=== PATIENT | male | born 1985 | race Caucasian/White ===

== ENCOUNTER 2017-10-12 23:49 | Emergency (ER) | payer BC ==
[~2017-10-12] VITALS: Ht 170.1 cm; Wt 90.7 kg
--- NOTE | ~2017-10-12 | EKG ---
[place], [place] ELECTROCARDIOGRAM REPORT NAME: DUSTY HARDING UNIT #: [id number] ROOM: DOCTOR: ALEAH MARIN MD BIRTHDATE: [birth year] DOS: 10/13/2017 TIME: 0050 hours. FINDINGS: 1. Sinus tachycardia at 110 beats per minute. 2. The tracing is otherwise normal. 3. No previous tracing is available for comparison. ALEAH MARIN MD CM:EKGRPT:ELECTROCARDIOGRAM REPORT [id number] ALEAH MARIN MD
[2017-10-13 01:22] LABS: ALBUMIN 3.2 gm/dl (3.1-4.5); ALKALINE PHOSPHATASE 97 U/L (45-117); BUN 11 mg/dl (7-24); CHLORIDE 110 mmol/L (98-107); CREATININE 1.36 mg/dL (0.70-1.30); POTASSIUM 3.5 mmol/L (3.5-5.1); SGOT/AST 109 IU/L (3-35); SGPT/ALT 109 U/L (12-78); SODIUM 142 mmol/L (136-145)
[2017-10-13 01:33] LABS: TROPONIN I 0.156 ng/ml (<0.045)
[2017-10-13 01:37] LABS: BASO # 0.1 10*3/uL (0.0-0.1); BASO % 0.7 % (0.0-1.0); EOS # 0.3 10*3/uL (0.0-0.4); EOS % 1.5 % (1.0-4.0); HEMOGLOBIN 15.2 g/dl (14.0-18.0); LYMPH % 27.9 % (27.0-41.0); MEAN CELL VOLUME 87.2 fl (80.0-94.0); MEAN CORPUSCULAR HGB 29.5 pg (27.0-31.0); MEAN CORPUSCULAR HGB CONC 33.8 g/dl (33.0-37.0); MEAN PLATELET VOLUME 10.3 fl (9.6-12.3); MONO # 0.9 10*3/uL (0.1-1.0); MONO % 5.2 % (3.0-9.0); NEUT # 11.4 10*3/uL (2.3-7.9); NEUT % 63.7 % (47.0-73.0); PLATELET COUNT AUTOMATED 309 10*3/uL (130-400); RED BLOOD COUNT 5.16 10*6/uL (4.50-5.90); RED CELL DISTRI WIDTH 12.5 % (0-14.5); WHITE BLOOD COUNT 17.9 10*3/uL (4.8-10.8)
== END 2017-10-13 02:22 | disposition short-term general hospital (02) ==
LOC: ED 23:49
PROVIDERS: Emergency Medicine
DX: A41.9 Sepsis, unspecified organism (principal); R65.21 Severe sepsis with septic shock; T79.7XXA Traumatic subcutaneous emphysema, initial encounter; X58.XXXA Exposure to other specified factors, initial encounter

== ENCOUNTER 2017-10-29 11:17 | Inpatient (IN) | payer BC ==
[~2017-10-29] VITALS: Ht 170.1 cm; Wt 82.4 kg
[2017-10-29] VITALS (13 sets, daily range): BP systolic 74–126; BP diastolic 48–63
--- NOTE | ~2017-10-29 | CON ---
[place], [place] REPORT OF CONSULTATION NAME: DUSTY HARDING UNIT #: [id number] ROOM: 411 DOCTOR: CASTILLO CARUSO MD BIRTHDATE: [birth year] DOS: 10/30/2017 REASON FOR CONSULTATION: Syncope. HISTORY OF PRESENT ILLNESS: The patient, a 32-year-old gentleman came to the Emergency Room after near syncope. He had a history of "aortic aneurysm," which was repaired on 10/14/2017 at [facility] in [place] and details are unknown. He was discharged on 10/20/2017. He is complaining of some "near syncopal attack at home," but no shortness of breath, chest pain, or heart palpitation prior to this episode, so he woke up in the morning and when he was about to go to the bathroom, he felt dizzy and then fell on his butt, but no loss of consciousness. He was brought to the Emergency Room, admitted to the hospital. He was found to have a low blood pressure and he was treated with IV fluids and Cardiology consulted for further recommendations. He was on hydrochlorothiazide, Coreg and losartan at home. At the time of my examination, the patient is alert, oriented. Denies any chest pain, shortness of breath. No palpitation or dizziness. No nausea, vomiting, no diarrhea. No bladder or bowel symptoms. REVIEW OF SYSTEMS: Review of the 10 system negative except as mentioned above. He denies any chest pain, shortness of breath, no palpitations, no PND, orthopnea. No nausea, vomiting, diarrhea. No bladder or bowel symptoms. No pulmonary symptoms, no neurologic symptoms. No musculoskeletal symptoms. No genitourinary symptoms. PAST MEDICAL HISTORY: 1. History of aortic aneurysm versus aortic dissection, details unknown. Status post aortic repair on 10/14/2017 in [place]. 2. Overweight. 3. Possible labile hypertension based on his home medications. 4. Acid reflux. 5. Prediabetes. PAST SURGICAL HISTORY: Aortic repair September 2017, details unknown. SOCIAL HISTORY: The patient does not smoke or drink, does not use illicit drugs. FAMILY HISTORY: Father in his 30s, cause unknown. Mother has a high cholesterol. HOME MEDICATIONS: Reviewed. ALLERGIES: Reviewed. PHYSICAL EXAMINATION: VITAL SIGNS: Blood pressure 129/82, pulse 82, respiratory rate is 18, weight 88.2 kilos, BMI 28.5. GENERAL: Alert, comfortable, in no acute distress. HEAD AND NECK: Pupils are round, equal. No jaundice. Tongue was moist and [place], [place] REPORT OF CONSULTATION NAME: DUSTY HARDING UNIT #: [id number] ROOM: 411 DOCTOR: CASTILLO CARUSO MD BIRTHDATE: [birth year] pharynx clear. NECK: Supple, no distended neck veins, no carotid bruit. CHEST: Symmetrical, nontender, well-healed midline scar. LUNGS: Clear to auscultation bilaterally. HEART: Regular rhythm, no S3, no palpable thrills. ABDOMEN: Benign, nontender. Bowel sounds normal. EXTREMITIES: Showed no edema. Distal pulses palpable. SKIN: Warm and dry. No cyanosis, no clubbing. RECTAL: Deferred. GENITOURINARY: Deferred. MUSCULOSKELETAL: No joint tenderness or swelling. NEUROLOGIC: The patient is alert, oriented. No focal neurologic deficit. PSYCHIATRIC: The patient is alert with good mood and affect. REVIEW OF THE DIAGNOSTIC TESTS: EKG shows sinus rhythm with inferior Q-waves. His labs and imaging studies reviewed. A CT chest showed a small pericardial effusion with ascending aortic repair. IMPRESSION: 1. Near syncope. Positive due to hypotension and orthostasis, resolved. No recurrence. 2. Recent aortic aneurysm surgery, details unknown. 3. Small pericardial effusion by CT chest. 4. Right upper abdominal quadrant pain. 5. Acid reflux. 6. Overweight. RECOMMENDATIONS: 1. I would recommend continuing low-dose beta blockers and to discontinue his losartan and hydrochlorothiazide. 2. Monitor blood pressures and heart rates at home. 3. No further cardiac testing from the cardiac standpoint. 4. If he had any recurrent dizzy or syncopal attacks, he will need outpatient event monitor. 5. We will follow him at our Cardiology Clinic in 2-4 weeks after discharge. 6. He can be discharged home from the cardiac standpoint. The above treatment plan discussed with the patient and his significant other who is at bedside and all questions were answered. He will follow with the cardiac surgeon in [place] as per his schedule. The patient was advised to drink plenty of fluids, avoid dehydration and also monitor his blood pressures at home. [place], [place] REPORT OF CONSULTATION NAME: DUSTY HARDING UNIT #: [id number] ROOM: 411 DOCTOR: ZULY NOLEN,CASTILLO BIRTHDATE: [birth year] CASTILLO CARUSO MD CM:CONSTR:REPORT OF CONSULTATION 1212 10/31/17 0116 interface
[2017-10-29 11:55] LABS: BASO # 0.1 10*3/uL (0.0-0.1); BASO % 0.4 % (0.0-1.0); EOS # 0.2 10*3/uL (0.0-0.4); EOS % 1.7 % (1.0-4.0); HEMOGLOBIN 12.4 g/dl (14.0-18.0); LYMPH # 1.7 10*3/uL (1.3-4.4); LYMPH % 12.9 % (27.0-41.0); MEAN CELL VOLUME 89.2 fl (80.0-94.0); MEAN CORPUSCULAR HGB 28.4 pg (27.0-31.0); MEAN CORPUSCULAR HGB CONC 31.8 g/dl (33.0-37.0); MEAN PLATELET VOLUME 8.7 fl (9.6-12.3); MONO # 1.1 10*3/uL (0.1-1.0); MONO % 8.2 % (3.0-9.0); NEUT # 10.1 10*3/uL (2.3-7.9); NEUT % 76.3 % (47.0-73.0); PLATELET COUNT AUTOMATED 811 10*3/uL (130-400); RED BLOOD COUNT 4.37 10*6/uL (4.50-5.90); WHITE BLOOD COUNT 13.2 10*3/uL (4.8-10.8)
[2017-10-29 12:04] LABS: ACT PARTIAL THROMBO TIME 21.4 SECONDS (20.8-31.5); INTERNATIONAL NORM RATIO 0.9 (2.0-3.5)
[2017-10-29 12:10] LABS: ALBUMIN 3.4 gm/dl (3.1-4.5); ALKALINE PHOSPHATASE 428 U/L (45-117); BUN 30 mg/dl (7-24); CHLORIDE 99 mmol/L (98-107); CREATININE 1.56 mg/dL (0.70-1.30); LIPASE 516 U/L (73-393); POTASSIUM 4.5 mmol/L (3.5-5.1); SGOT/AST 162 IU/L (3-35); SGPT/ALT 352 U/L (12-78); SODIUM 134 mmol/L (136-145); TOTAL PROTEIN 8.7 gm/dL (6.4-8.2)
[2017-10-29 12:13] LABS: TROPONIN I < 0.015 ng/ml (<0.045)
[2017-10-29] MEDS ORDERED: HYDR25T PO (12:18)
[2017-10-29] MEDS ORDERED: COREG12.5 M1 PO (12:18)
[2017-10-29] MEDS ORDERED: ASPIRIN81 M1 PO (12:18)
[2017-10-29] MEDS ORDERED: LOSARTAN POTAS100 M1 PO (12:18)
[2017-10-29] MEDS ORDERED: PROTONIX40 MG PO (12:19)
[2017-10-29] MEDS ORDERED: PENICILLIN-VK500 MG PO (12:19)
[2017-10-29 14:20] LABS: BILIRUBIN NEGATIVE (NEGATIVE); BLOOD NEGATIVE (NEGATIVE); CLARITY CLEAR (CLEAR); COLOR YELLOW (YELLOW); GLUCOSE NEGATIVE (NEGATIVE); KETONE NEGATIVE (NEGATIVE); LEUKO ESTERASE NEGATIVE (NEGATIVE); NITRITE NEGATIVE (NEGATIVE); PH 5.5 (5.0-9.0); SPECIFIC GRAVITY <= 1.005 (1.005-1.030); UROBILINOGEN 0.2 E.U./dl (0.2-1.0)
[2017-10-29 14:33] LABS: BACTERIA TRACE; EPITHELIAL CELLS 0-2; HYALINE CAST 0-2; RBC 0-2 rbc/hpf (0-2)
[2017-10-29] MEDS ORDERED: [UNRECOGNIZED DRUG - OTHER] PO (17:25)
[2017-10-30] VITALS: BP 132/72
[2017-10-30 05:29] VITALS: BP 129/82
[2017-10-30 07:16] LABS: BASO # 0.1 10*3/uL (0.0-0.1); BASO % 0.7 % (0.0-1.0); EOS # 0.2 10*3/uL (0.0-0.4); EOS % 2.4 % (1.0-4.0); HEMATOCRIT 34.2 % (42.0-52.0); HEMOGLOBIN 10.7 g/dl (14.0-18.0); LYMPH # 2.4 10*3/uL (1.3-4.4); MEAN CELL VOLUME 90.5 fl (80.0-94.0); MEAN CORPUSCULAR HGB 28.3 pg (27.0-31.0); MEAN CORPUSCULAR HGB CONC 31.3 g/dl (33.0-37.0); MEAN PLATELET VOLUME 8.6 fl (9.6-12.3); MONO # 0.9 10*3/uL (0.1-1.0); MONO % 9.9 % (3.0-9.0); NEUT # 5.9 10*3/uL (2.3-7.9); NEUT % 61.7 % (47.0-73.0); PLATELET COUNT AUTOMATED 694 10*3/uL (130-400); RED BLOOD COUNT 3.78 10*6/uL (4.50-5.90); RED CELL DISTRI WIDTH 13.2 % (0-14.5); WHITE BLOOD COUNT 9.5 10*3/uL (4.8-10.8)
[2017-10-30 07:47] LABS: ALKALINE PHOSPHATASE 330 U/L (45-117); BUN 21 mg/dl (7-24); CHLORIDE 105 mmol/L (98-107); CHOLESTEROL 223 mg/dL (<200); CREATININE 1.09 mg/dL (0.70-1.30); FREE T4 1.29 ng/dl (0.76-1.46); HDL CHOLESTEROL 24 mg/dl (40-60); LDL CHOLESTEROL 147 mg/dL (9-159); PHOSPHOROUS 3.5 mg/dL (2.5-4.9); POTASSIUM 4.2 mmol/L (3.5-5.1); SGOT/AST 62 IU/L (3-35); SGPT/ALT 245 U/L (12-78); SODIUM 140 mmol/L (136-145); TOTAL PROTEIN 7.7 gm/dL (6.4-8.2); TRIGLYCERIDES 261 mg/dl (<150); VLDL CHOLESTEROL 52 mg/dL (6-40)
[2017-10-30 07:51] LABS: THYROID STIM HORMONE (HS) 0.904 uIU/ml (0.358-4.75)
[2017-10-30 07:54] LABS: ACT PARTIAL THROMBO TIME 23.5 SECONDS (20.8-31.5)
[2017-10-30 08:00] VITALS: BP 121/71
[2017-10-30 09:05] LABS: VITAMIN D, 25-HYDROXY 8.2 ng/mL (30-100)
[2017-10-30] MEDS ORDERED: VITAMIN D-32000 UNIT PO (10:35)
[2017-10-31 11:03] LABS: HEPATITIS B SURFACE AG Negative (Negative); HEPATITIS C VIRUS ANTIBODY 0.6 s/co (0.0-0.9)
== END 2017-10-30 13:03 | disposition home or self-care (01) | DRG 682 ==
LOC: ED 11:17 → 4E 14:23 → EDHOLD 14:23 → 4E 14:46
PROVIDERS: Emergency Medicine; Student in an Organized Health Care Education/Training Program
DX: N17.0 Acute kidney failure with tubular necrosis (principal); R65.11 Systemic inflammatory response syndrome (SIRS) of non-infectious origin with acute organ dysfunction; E44.0 Moderate protein-calorie malnutrition; I31.3 Pericardial effusion (noninflammatory); I95.9 Hypotension, unspecified; E87.1 Hypo-osmolality and hyponatremia; E83.41 Hypermagnesemia; Z68.28 Body mass index [BMI] 28.0-28.9, adult; R55 Syncope and collapse; R74.0 Nonspecific elevation of levels of transaminase and lactic acid dehydrogenase [LDH]; D72.829 Elevated white blood cell count, unspecified; D64.9 Anemia, unspecified; D47.3 Essential (hemorrhagic) thrombocythemia; R73.9 Hyperglycemia, unspecified; K21.9 Gastro-esophageal reflux disease without esophagitis; R73.03 Prediabetes; E55.9 Vitamin D deficiency, unspecified; E78.5 Hyperlipidemia, unspecified; Z87.891 Personal history of nicotine dependence; Z82.49 Family history of ischemic heart disease and other diseases of the circulatory system; Z84.89 Family history of other specified conditions; Z79.899 Other long term (current) drug therapy; Z79.82 Long term (current) use of aspirin

== ENCOUNTER → 2020-02-23 | Outpatient (CLI) | payer BC ==
[~2020-02-23] MED LIST: ASPIRIN81 M1 PO; COREG12.5 M1 PO; COZAAR100 MG PO; FISH OIL 1,0001 EAC2 PO; HYDR25T PO; LIPITOR40 MG PO; LOSARTAN POTAS100 M1 PO; METOPROLOL SUCC50 M1 PO; NORVASC10 MG PO; PENICILLIN-VK500 MG PO; PROTONIX40 MG PO; VITAMIN D-32000 UNIT PO; [UNRECOGNIZED DRUG - OTHER] PO
== END | disposition home or self-care (01) ==
LOC: US 09:30
PROVIDERS: ATTEND Internal Medicine
DX: R74.8 Abnormal levels of other serum enzymes (principal)

== ENCOUNTER → 2020-03-16 | Outpatient (CLI) | payer BC ==
--- NOTE | 2020-03-16 13:00 | NUR ---
INFORMED CONSENT OBTAINED FOR LEXISCAN NUCLEAR STRESS TEST WITH DR. BHARDWAJ. RESTING EKG NSR WITH A RESTING HR OF 93 WITH BP 132/84. LUNGS CLEAR WITH SPO2 OF 98% ON ROOM AIR. PT COMPLETED A 1:00 LEXISCAN PROTOCOL RECEIVING LEXISCAN 0.4 MG IV OVER 10 SECONDS. HAD NO CHEST PAIN OR ANY EKG CHANGES. HAD C/O SHORTNESS OF BREATH THAT WAS RELIEVED IN RECOVERY. HAD A PEAK HR OF 122 WITH BP OF 154/70. LAST RECOVERY HR OF 109 WITH BP OF 140/72. AWAITING SCANNING IN STABLE CONDITION.
== END | disposition home or self-care (01) ==
LOC: CARD 02-24 12:00
PROVIDERS: ATTEND Internal Medicine
DX: R07.2 Precordial pain (principal); R94.31 Abnormal electrocardiogram [ECG] [EKG]

== ENCOUNTER 2020-11-27 18:14 | Emergency (ER) | payer BC ==
[~2020-11-27] VITALS: Ht 172.7 cm; Wt 83.5 kg
[2020-11-27 19:34] LABS: BASO % 0.6 % (0.0-1.0); EOS % 0.4 % (1.0-4.0); HEMATOCRIT 36.4 % (42.0-52.0); LYMPH # 1.5 10*3/uL (1.3-4.4); LYMPH % 20.4 % (27.0-41.0); MEAN CELL VOLUME 72.7 fl (80.0-94.0); MEAN CORPUSCULAR HGB 22.2 pg (27.0-31.0); MEAN CORPUSCULAR HGB CONC 30.5 g/dl (33.0-37.0); MEAN PLATELET VOLUME 9.3 fl (9.6-12.3); MONO # 0.8 10*3/uL (0.1-1.0); MONO % 11.4 % (3.0-9.0); NEUT # 4.8 10*3/uL (2.3-7.9); NEUT % 66.9 % (47.0-73.0); PLATELET COUNT AUTOMATED 412 10*3/uL (130-400); RED BLOOD COUNT 5.01 10*6/uL (4.50-5.90); RED CELL DISTRI WIDTH 15.6 % (0-14.5); WHITE BLOOD COUNT 7.2 10*3/uL (4.8-10.8)
[2020-11-27 19:51] LABS: ALBUMIN 3.8 gm/dl (3.1-4.5); ALKALINE PHOSPHATASE 102 U/L (45-117); BUN 11 mg/dl (7-24); CHLORIDE 102 mmol/L (98-107); CREATININE 0.95 mg/dL (0.70-1.30); POTASSIUM 3.5 mmol/L (3.5-5.1); SGOT/AST 41 IU/L (3-35); SGPT/ALT 82 U/L (12-78); SODIUM 135 mmol/L (136-145); TOTAL PROTEIN 7.9 gm/dL (6.4-8.2)
[2020-11-27 19:59] LABS: TROPONIN I < 0.015 ng/ml (<0.045)
[2020-11-27] MEDS ORDERED: OMEPRAZOLE MAGN20 MG PO (21:01)
== END 2020-11-27 21:21 | disposition home or self-care (01) ==
LOC: ED 18:14
PROVIDERS: Emergency Medicine
DX: K21.9 Gastro-esophageal reflux disease without esophagitis (principal); D64.9 Anemia, unspecified; R55 Syncope and collapse; F17.200 Nicotine dependence, unspecified, uncomplicated; Z79.899 Other long term (current) drug therapy; Z79.82 Long term (current) use of aspirin; Z98.890 Other specified postprocedural states

== ENCOUNTER → 2021-05-26 | Outpatient (CLI) | payer BC ==
[~2021-05-26] MED LIST changes: +OMEPRAZOLE MAGN20 MG PO
== END | disposition home or self-care (01) ==
LOC: LAB 12:55
PROVIDERS: ATTEND Internal Medicine
DX: N34.2 Other urethritis (principal)

== ENCOUNTER → 2021-06-09 | Outpatient (CLI) | payer BC ==
[2021-06-09 11:03] LABS: BASO % 0.6 % (0.0-1.0); EOS # 0.1 10*3/uL (0.0-0.4); EOS % 2.2 % (1.0-4.0); HEMATOCRIT 41.8 % (42.0-52.0); LYMPH % 37.4 % (27.0-41.0); MEAN CELL VOLUME 74.4 fl (80.0-94.0); MEAN CORPUSCULAR HGB 23.1 pg (27.0-31.0); MEAN CORPUSCULAR HGB CONC 31.1 g/dl (33.0-37.0); MEAN PLATELET VOLUME 9.3 fl (9.6-12.3); MONO # 0.5 10*3/uL (0.1-1.0); MONO % 9.7 % (3.0-9.0); NEUT # 2.7 10*3/uL (2.3-7.9); NEUT % 49.9 % (47.0-73.0); PLATELET COUNT AUTOMATED 420 10*3/uL (130-400); RED BLOOD COUNT 5.62 10*6/uL (4.50-5.90); RED CELL DISTRI WIDTH 16.9 % (0-14.5); WHITE BLOOD COUNT 5.4 10*3/uL (4.8-10.8)
[2021-06-09 11:22] LABS: ALBUMIN 3.8 gm/dl (3.1-4.5); ALKALINE PHOSPHATASE 106 U/L (45-117); BUN 16 mg/dl (7-24); CHLORIDE 107 mmol/L (98-107); CHOLESTEROL 150 mg/dL (<200); CREATININE 1.03 mg/dL (0.70-1.30); LDL CHOLESTEROL 58 mg/dL (9-159); POTASSIUM 3.7 mmol/L (3.5-5.1); SGOT/AST 59 IU/L (3-35); SGPT/ALT 114 U/L (12-78); SODIUM 137 mmol/L (136-145); TRIGLYCERIDES 336 mg/dl (<150)
[2021-06-09 11:58] LABS: BILIRUBIN Negative (Negative); BLOOD Negative (Negative); COLOR Yellow (Yellow); GLUCOSE Negative (Negative); KETONE Negative (Negative); LEUKO ESTERASE Negative (Negative); NITRITE Negative (Negative); UROBILINOGEN 0.2 E.U./dl (0.0-1.0)
[2021-06-09 12:08] LABS: CLARITY Clear (Clear)
[2021-06-09 12:49] LABS: EPITHELIAL CELLS 0-2; MUCOUS TRACE
[2021-06-10 06:07] LABS: HEP B CORE AB, IGM Negative (Negative); HEPATITIS B SURFACE AG Negative (Negative); HEPATITIS C VIRUS ANTIBODY <0.1 s/co (0.0-0.9)
[2021-06-10 14:08] LABS: VARICELLA-ZOSTER IGM AB <0.91 index (0.00-0.90)
[2021-06-10 15:07] LABS: CD 4 POS LYMPH, % 19.4 % (30.8-58.5); CD 8 POS LYMPH, % 44.8 % (12.0-35.5); CD4-CD8 RATIO 0.43 (0.92-3.72)
[2021-06-10 16:08] LABS: ABSOLUTE CD 4 HELPER 369 /uL (359-1519); ABSOLUTE CD8 SUPRESSOR 851 /uL (109-897); LYMPHOCYTES, ABSOLUTE 1.9 x10E3/uL (0.7-3.1); WBC 5.3 x10E3/uL (3.4-10.8)
[2021-06-10 17:06] LABS: VARICELLA-ZOSTER IGG 1117 index (Immune >165)
[2021-06-10 20:07] LABS: HIV-1 RNA BY PCR 119000 (.); LOG10 HIV-1 RNA 5.076 (.)
[2021-06-12 17:06] LABS: TB1 Ag VALUE 0.26 IU/mL (.)
== END | disposition home or self-care (01) ==
LOC: LAB 10:27
PROVIDERS: ATTEND Internal Medicine
DX: Z21 Asymptomatic human immunodeficiency virus [HIV] infection status (principal)

== ENCOUNTER → 2021-07-22 | Outpatient (CLI) | payer BC ==
[2021-07-22 15:06] LABS: BASO # 0.1 10*3/uL (0.0-0.1); BASO % 1.3 % (0.0-1.0); EOS # 0.1 10*3/uL (0.0-0.4); EOS % 1.5 % (1.0-4.0); HEMATOCRIT 39.6 % (42.0-52.0); LYMPH # 2.4 10*3/uL (1.3-4.4); LYMPH % 44.7 % (27.0-41.0); MEAN CELL VOLUME 75.3 fl (80.0-94.0); MEAN CORPUSCULAR HGB 23.6 pg (27.0-31.0); MEAN CORPUSCULAR HGB CONC 31.3 g/dl (33.0-37.0); MEAN PLATELET VOLUME 9.1 fl (9.6-12.3); MONO # 0.4 10*3/uL (0.1-1.0); MONO % 8.3 % (3.0-9.0); NEUT # 2.3 10*3/uL (2.3-7.9); PLATELET COUNT AUTOMATED 410 10*3/uL (130-400); RED BLOOD COUNT 5.26 10*6/uL (4.50-5.90); RED CELL DISTRI WIDTH 16.5 % (0-14.5); WHITE BLOOD COUNT 5.3 10*3/uL (4.8-10.8)
[2021-07-22 15:24] LABS: ALKALINE PHOSPHATASE 93 U/L (45-117); BUN 13 mg/dl (7-24); CHLORIDE 107 mmol/L (98-107); CREATININE 1.09 mg/dL (0.70-1.30); POTASSIUM 4.2 mmol/L (3.5-5.1); SGOT/AST 28 IU/L (3-35); SGPT/ALT 67 U/L (12-78); SODIUM 138 mmol/L (136-145); TOTAL PROTEIN 7.7 gm/dL (6.4-8.2)
[2021-07-23 13:04] LABS: CD 4 POS LYMPH, % 16.4 % (30.8-58.5)
[2021-07-23 20:04] LABS: HIV-1 RNA BY PCR <20 (.)
[2021-07-25 13:06] LABS: ABSOLUTE CD 4 HELPER 394 /uL (359-1519); HEMATOCRIT 40.7 % (37.5-51.0); HEMOGLOBIN 12.2 g/dL (13.0-17.7); RBC 5.33 x10E6/uL (4.14-5.80); WBC 5.3 x10E3/uL (3.4-10.8)
== END | disposition home or self-care (01) ==
LOC: LAB 14:21
PROVIDERS: ATTEND Internal Medicine Infectious Disease
DX: B20 Human immunodeficiency virus [HIV] disease (principal)

== ENCOUNTER → 2022-01-06 | Outpatient (CLI) | payer BC ==
[2022-01-06 12:05] LABS: BILIRUBIN Negative (Negative); BLOOD Negative (Negative); CLARITY Clear (Clear); COLOR Yellow (Yellow); GLUCOSE Negative (Negative); KETONE Trace (Negative); LEUKO ESTERASE Negative (Negative); NITRITE Negative (Negative); PH 6.5 (4.5-8.0)
[2022-01-06 13:00] LABS: BACTERIA TRACE; HYALINE CAST 0-2; MUCOUS TRACE; RBC 0-2 rbc/hpf (0-2); WBC 0-2 wbc/hpf (0-5)
== END | disposition home or self-care (01) ==
LOC: LAB 11:08
PROVIDERS: ATTEND Internal Medicine Nephrology
DX: R80.9 Proteinuria, unspecified (principal)

== ENCOUNTER → 2022-02-17 | Outpatient (CLI) | payer BC | END | disposition home or self-care (01) | LOC: US 02-15 14:00 | PROVIDERS: ATTEND Internal Medicine Nephrology | DX: R80.9 Proteinuria, unspecified (principal) ==

== ENCOUNTER → 2022-07-22 | Outpatient (CLI) | payer BC | END | disposition home or self-care (01) | LOC: RAD 09:23 | PROVIDERS: ATTEND Internal Medicine | DX: J98.11 Atelectasis (principal); I51.7 Cardiomegaly ==

== ENCOUNTER 2024-07-17 13:31 | Emergency (ER) | payer BC ==
[~2024-07-17] VITALS: Wt 83.9 kg
[2024-07-17] MEDS ORDERED: METFORMIN HYDR500 MG PO (13:45)
[2024-07-17 14:05] LABS: BASO # 0.1 10*3/uL (0.0-0.1); BASO % 0.5 % (0.0-1.0); EOS # 0.3 10*3/uL (0.0-0.4); EOS % 1.9 % (1.0-4.0); HEMATOCRIT 41.2 % (42.0-52.0); MEAN CELL VOLUME 89.8 fl (80.0-94.0); MEAN CORPUSCULAR HGB 29.8 pg (27.0-31.0); MEAN CORPUSCULAR HGB CONC 33.3 g/dl (33.0-37.0); MEAN PLATELET VOLUME 8.9 fl (9.6-12.3); MONO # 0.8 10*3/uL (0.1-1.0); NEUT # 9.5 10*3/uL (2.3-7.9); NEUT % 73.3 % (47.0-73.0); PLATELET COUNT AUTOMATED 402 10*3/uL (130-400); RED BLOOD COUNT 4.59 10*6/uL (4.50-5.90); WHITE BLOOD COUNT 12.9 10*3/uL (4.8-10.8)
[2024-07-17 14:23] LABS: BUN 13 mg/dl (9-23); CHLORIDE 103 mmol/L (98-107); POTASSIUM 3.9 mmol/L (3.4-5.1)
[2024-07-17 14:23] LABS: BILIRUBIN Negative (Negative); BLOOD Negative (Negative); CLARITY Clear (Clear); COLOR Yellow (Yellow); GLUCOSE Negative (Negative); KETONE Negative (Negative); LEUKO ESTERASE 2+ (Negative); NITRITE Negative (Negative); PH 6.5 (4.5-8.0); SPECIFIC GRAVITY 1.015 (1.001-1.030)
[2024-07-17 14:30] LABS: BACTERIA 1+; RBC 0-2 rbc/hpf (0-2); WBC 31-40 wbc/hpf (0-5)
[2024-07-17] MEDS ORDERED: IOHEXOL 300 MG/ML 100 ML VIAL IV ONE (15:40)
[2024-07-17] MEDS ORDERED: VITAMIN E100 UNI1 PO (15:56)
[2024-07-17] MEDS ORDERED: PEPCID40 MG PO (15:58)
[2024-07-17] MEDS ORDERED: CITALOPRAM40 MG PO (15:58)
[2024-07-17] MEDS ORDERED: IRON325 M1 PO (15:58)
[2024-07-17] MEDS ORDERED: IOHEXOL 300 MG/ML 100 ML VIAL ONE (16:02)
[2024-07-17] MEDS ORDERED: VIBRAMYCIN100 MG PO (18:01)
[2024-07-17] MEDS ORDERED: MELOXICAM15 MG PO (18:01)
[2024-07-17] MEDS ORDERED: Acetaminophen/Oxycodone 5 MG/325 MG TABLET PO ONE (18:05)
== END 2024-07-17 18:02 | disposition home or self-care (01) ==
LOC: ED 13:31
PROVIDERS: Internal Medicine
DX: N45.2 Orchitis (principal); Z79.82 Long term (current) use of aspirin; Z79.899 Other long term (current) drug therapy; Z79.84 Long term (current) use of oral hypoglycemic drugs; Z98.890 Other specified postprocedural states; Z87.891 Personal history of nicotine dependence